=== PATIENT | male | born 1985 | race Hispanic/Latino ===

== ENCOUNTER 2024-06-24 15:24 | Emergency (ER) | payer OTHER, SELFPAY ==
--- NOTE | 2024-06-24 16:41 | RAD REPORT ---
Procedure: Chest Single View HISTORY: Chest pain COMPARISON: none FINDINGS: The lungs appear clear of acute infiltrate. No significant pleural effusion noted. The heart is normal size. IMPRESSION: No acute abnormality is displayed.
[2024-06-24] MEDS ORDERED: ASPIRIN 81 MG CHEWABLE TABLET ONE (17:08)
[2024-06-24 17:29] LABS: Absolute Eosinophils 0.1 K/uL (0-0.5); Absolute Lymphocytes (CBC) 1.7 K/uL (0.7-4.9); Absolute Monocytes 0.5 K/uL (0.1-1.3); Absolute Neutrophil 5.4 K/uL (1.8-8.0); Basophils % 0.5 % (0-1.3); Eosinophils % 1.3 % (0-4.4); Hematocrit 46.4 % (39.6-49.0); Hemoglobin 15.6 g/dL (13.6-17.9); Lymphocytes % 21.6 % (15.3-44.8); MCHC 33.7 g/dL (32.0-36.0); MCV 91.8 fL (80-100); Monocytes % 7.1 % (3.3-12.3); Neutrophils % 69.5 % (41.7-73.7); Platelets 212 thou/uL (152-406); RBC Red Blood Cell Count 5.05 M/uL (4.33-5.43); Red Cell Distribution Width 13.5 % (12.1-15.2)
[2024-06-24 17:32] LABS: D-Dimer 0.367 FEUug/mL (0-0.500); PT Prothrombin Time 12.1 SECONDS (9.4-12.5); Protime INR 1.08
[2024-06-24 17:55] LABS: ALT/SGPT 39 U/L (16-61); AST/SGOT 17 U/L (15-37); Albumin 3.8 g/dL (3.4-5.0); Alkaline Phosphatase 88 U/L (45-117); Anion Gap 7.7 mEq/L (5.0-15.0); BUN Blood Urea Nitrogen 7 mg/dL (7-18); Bicarbonate 29 mEq/L (21-32); Bilirubin Total 0.5 mg/dL (0.2-1.0); Glomerular Filtration Rate 117 ml/min (=/>90); Glucose Level 99 mg/dL (74-106); Magnesium 2.2 mg/dL (1.6-2.4); NT PRO-BNP 37 pg/mL (<125); Potassium 3.7 mEq/L (3.5-5.1); Protein, Total 7.8 g/dL (6.4-8.2); Sodium Level 138 mEq/L (136-145); Troponin High Sensitivity 5.5 pg/mL (<58.9)
[2024-06-24 17:58] LABS: Bilirubin Direct < 0.2 mg/dL (0-0.2); Bilirubin Indirect, Calculated 0.3 mg/dL (0.2-0.8)
--- NOTE | 2024-06-24 20:16 | ER ---
Nurse's Notes [facility] Name: King Jang Age: 39 yrs Sex: Male : 1985 Arrival Date: 06/24/2024 Time: 15:24 Bed 7 Private MD: Diagnosis: Chest pain, unspecified;Elevated blood-pressure reading, without diagnosis of hypertension;Strain of muscle and tendon of front wall of thorax Presentation: 06/24 15:44 Chief complaint: Patient states: "yesterday I picked up this heavy box and right after aa5 I started having pressure to my chest and felt my heart racing". Pt currently c/o chest pressure and feeling "nauseated and dizzy". Coronavirus screen: At this time, the client does not indicate any symptoms associated with coronavirus-19. Ebola Screen: Patient denies travel to an Ebola-affected area in the 21 days before illness onset. Initial Sepsis Screen: Does the patient meet any 2 criteria? No. Patient's initial sepsis screen is negative. Does the patient have a suspected source of infection? No. Patient's initial sepsis screen is negative. Risk Assessment: Do you want to hurt yourself or someone else? Patient reports no desire to harm self or others. Onset of symptoms was June 23, 2024. 15:44 Acuity: LYNSEY 3 aa5 15:44 Method Of Arrival: Ambulatory aa5 Historical: - Allergies: 15:54 No Known Allergies; aa5 - Home Meds: 15:54 None [Active]; aa5 - PMHx: 15:54 seizures as a child; aa5 - PSHx: 15:54 Appendectomy; ear sx; aa5 - Immunization history:: Adult Immunizations unknown. - Infectious Disease History:: Denies. - Social history:: Smoking status: Patient denies any tobacco usage or history of. Screenin:22 [facility] ED Fall Risk Assessment (Adult) History of falling in the last 3 months, jl7 including since admission No falls in past 3 months (0 pts) Confusion or Disorientation No (0 pts) Intoxicated or Sedated No (0 pts) Impaired Gait No (0 pts) Mobility Assist Device Used No (0 pt) Altered Elimination No (0 pt) Score/Fall Risk Level 0 - 2 = Low Risk Oriented to surroundings, Maintained a safe environment. Abuse screen: Denies threats or abuse. Denies injuries from another. Nutritional screening: No deficits noted. Tuberculosis screening: No symptoms or risk factors identified. Assessment: 17:22 General: Appears in no apparent distress. uncomfortable, Behavior is calm, cooperative, jl7 appropriate for age. Pain: Complains of pain in mid-sternal area Pain does not radiate. Quality of pain is described as pressure, Pain began 1 day ago. Is continuous. Neuro: Level of Consciousness is awake, alert, obeys commands, Oriented to person, place, time, situation. Cardiovascular: Patient's skin is warm and dry. Respiratory: Airway is patent Respiratory effort is even, unlabored, Respiratory pattern is regular, symmetrical. Derm: Skin is pink, warm \\T\\ dry. 19:12 Reassessment: Patient appears in no apparent distress at this time. Patient and/or bm8 family updated on plan of care and expected duration. Pain level reassessed. Patient is alert, oriented x 3, equal unlabored respirations, skin warm/dry/pink. denies pain but reports a chest pressure that just there. Patient denies pain at this time. Patient states feeling better. Patient states symptoms have improved. Cardiovascular: Heart tones S1 S2 present Capillary refill < 3 seconds in bilateral fingers Patient's skin is warm and dry. Rhythm is sinus rhythm. Respiratory: Airway is patent Respiratory effort is even, unlabored, Respiratory pattern is regular, symmetrical, Breath sounds are clear bilaterally. 20:34 Reassessment: Patient appears in no apparent distress at this time. No changes from bm8 previously documented assessment. Patient and/or family updated on plan of care and expected duration. Pain level reassessed. Patient is alert, oriented x 3, equal unlabored respirations, skin warm/dry/pink. Patient denies pain at this time. Patient states feeling better. Patient states symptoms have improved. Vital Signs: 15:44 BP 152 / 104; Pulse 100; Resp 19 S; Temp 97.6(TE); Pulse Ox 100% on R/A; aa5 17:22 BP 140 / 90; Pulse 79; Resp 15; Pulse Ox 98% ; jl7 18:07 BP 131 / 90; Pulse 83; Resp 15; Pulse Ox 97% on R/A; ko1 19:12 BP 138 / 80; Pulse 78; Resp 19; Temp 97.6; Pulse Ox 100% ; Pain 0/10; bm8 20:34 BP 128 / 91; Pulse 79; Resp 17; Temp 97.6; Pulse Ox 97% ; Pain 0/10; bm8 19:12 Pain Scale: Adult bm8 20:34 Pain Scale: Adult bm8 [place] Coma Score: 19:12 Eye Response: spontaneous(4). Motor Response: obeys commands(6). Verbal Response: bm8 oriented(5). Total: 15. 20:34 Eye Response: spontaneous(4). Motor Response: obeys commands(6). Verbal Response: bm8 oriented(5). Total: 15. ED Course: 15:26 Patient arrived in ED. ra3 15:26 Marisa Billings PA-C is PHCP. sb4 15:26 King Abbott MD is Attending Physician. sb4 15:44 Arm band placed on. aa5 15:45 Triage completed. aa5 15:53 EKG completed in triage. Results shown to MD. aa5 16:23 XRAY Chest (1 view) In Process Unspecified. EDMS 17:05 Evie Kang, JASMYN is Primary Nurse. ko1 17:21 Initial lab(s) drawn, by me, sent to lab. Inserted saline lock: 20 gauge in right jl7 antecubital area, using aseptic technique. Blood collected. Flushed with 10 mL NS. 17:22 Patient has correct armband on for positive identification. Provided Education on: use jl7 of call casiano. Client placed on continuous cardiac and pulse oximetry monitoring. NIBP monitoring applied. 17:22 Patient maintains SpO2 saturation greater than 95% on room air. jl7 18:07 Door closed. Noise minimized. Lights dimmed. Warm blanket given. Pillow given. ko1 18:07 No provider procedures requiring assistance completed. ko1 19:12 Report received from jasmyn robertson. bm8 20:15 Ole Montejo DO is Referral Physician. sb4 20:34 IV discontinued, intact, bleeding controlled, No redness/swelling at site. Pressure bm8 dressing applied. Administered Medications: 17:09 Drug: Aspirin PO Chewable Tablet 324 mg PO once; 81 mg tablets x 4 Route: PO; ko1 17:39 Follow up: Response: No adverse reaction ko1 Medication: 17:22 VIS not applicable for this client. jl7 Outcome: 20:15 Discharge ordered by . sb4 20:34 Discharged to home ambulatory, bm8 20:34 Condition: stable 20:34 Discharge instructions given to patient, family, Instructed on discharge instructions, follow up and referral plans. no drinking with medication, no driving heavy equipment, medication usage, safety practices, Demonstrated understanding of instructions, follow-up care, medications, Prescriptions given X 2, 20:41 Patient left the ED. bm8 Signatures: Dispatcher [employer] EDAZ Jewell Cox, RN RN aa5 Joaquim Cline RN RN jl7 Evie Kang RN RN ko1 Marisa Billings, PA-C PA-C sb4 Maryjane Monae ra3 Trent Harrison, RN RN bm8 Corrections: (The following items were deleted from the chart) 15:54 15:54 PMHx: None; aa5 aa5
--- NOTE | 2024-06-24 20:17 | EDPHYS ---
Physician Documentation [facility] Name: King Jang Age: 39 yrs Sex: Male : 1985 Arrival Date: 06/24/2024 Time: 15:24 Bed 7 Private MD: ED Physician King Abbott HPI: 06/24 15:48 This 39 yrs old Male presents to ER via Ambulatory with complaints of Chest sb4 Pain. 15:48 Chest discomfort that started yesterday after moving a heavy piece of furniture. States sb4 he has associated dizziness, palpitations, and nausea. Denies any prior episodes of this. Denies any medical history, does not take any daily medications. Does not smoke. Denies any significant family heart disease. Denies any radiation of the symptoms.. Historical: - Allergies: 15:54 No Known Allergies; aa5 - Home Meds: 15:54 None [Active]; aa5 - PMHx: 15:54 seizures as a child; aa5 - PSHx: 15:54 Appendectomy; ear sx; aa5 - Immunization history:: Adult Immunizations unknown. - Infectious Disease History:: Denies. - Social history:: Smoking status: Patient denies any tobacco usage or history of. ROS: 15:49 Constitutional: Negative for fever, chills, and weight loss, sb4 15:49 Cardiovascular: Positive for chest pain, 15:49 All other systems are negative, Exam: 15:50 Head/Face: Normocephalic, atraumatic. Eyes: Extra-ocular motions intact. Periorbital sb4 areas with no swelling, redness, or edema. ENT: Mucous membranes moist. Cardiovascular: Regular rate and rhythm with a normal S1 and S2. Respiratory: No increased work of breathing, no retractions or nasal flaring. Abdomen/GI: Soft, non-tender, no distension. Skin: Warm, dry with normal turgor. Normal color with no rashes, no lesions, and no evidence of cellulitis. 15:50 Constitutional: The patient appears in no acute distress, alert, awake, obese, Vital Signs: 15:44 BP 152 / 104; Pulse 100; Resp 19 S; Temp 97.6(TE); Pulse Ox 100% on R/A; aa5 17:22 BP 140 / 90; Pulse 79; Resp 15; Pulse Ox 98% ; jl7 18:07 BP 131 / 90; Pulse 83; Resp 15; Pulse Ox 97% on R/A; ko1 19:12 BP 138 / 80; Pulse 78; Resp 19; Temp 97.6; Pulse Ox 100% ; Pain 0/10; bm8 20:34 BP 128 / 91; Pulse 79; Resp 17; Temp 97.6; Pulse Ox 97% ; Pain 0/10; bm8 19:12 Pain Scale: Adult bm8 20:34 Pain Scale: Adult bm8 [place] Coma Score: 19:12 Eye Response: spontaneous(4). Motor Response: obeys commands(6). Verbal Response: bm8 oriented(5). Total: 15. 20:34 Eye Response: spontaneous(4). Motor Response: obeys commands(6). Verbal Response: bm8 oriented(5). Total: 15. MDM: 15:42 Medical Screening Exam initiated sb4 19:50 Data reviewed: vital signs, nurses notes, lab test result(s), EKG, radiologic studies, sb4 plain films. Consideration of Admission/Observation Escalation of care including admission/observation considered. Care significantly affected by the following chronic conditions: Obesity. Scoring Tools HEART Score: History: ECG: Age: Risk Factors: 1 or 2 risk factors (1), Troponin: Total Score = 2. Counseling: I had a detailed discussion with the patient and/or guardian regarding the historical points, exam findings, and any diagnostic results supporting the discharge/admit diagnosis, the presence of at least one elevated blood pressure reading (>120/80) during this emergency department visit, lab results, radiology results, the need for outpatient follow up, a lens generator, to return to the emergency department if symptoms worsen or persist or if there are any questions or concerns that arise at home. 06/24 15:48 Order name: Basic Metabolic Panel; Complete Time: 18:00 sb4 06/24 15:48 Order name: CBC with Diff; Complete Time: 17:29 sb4 06/24 15:48 Order name: D-Dimer; Complete Time: 17:32 sb4 06/24 15:48 Order name: LFT's; Complete Time: 18:00 sb4 06/24 15:48 Order name: Magnesium; Complete Time: 18:00 sb4 06/24 15:48 Order name: NT PRO-BNP; Complete Time: 18:00 sb4 06/24 15:48 Order name: PT-INR; Complete Time: 17:32 sb4 06/24 15:48 Order name: Troponin HS; Complete Time: 18:00 sb4 06/24 19:09 Order name: Troponin High Sensitivity; Complete Time: 20:11 sb4 06/24 15:48 Order name: XRAY Chest (1 view); Complete Time: 16:42 sb4 06/24 15:48 Order name: Cardiac monitoring; Complete Time: 16:53 sb4 06/24 15:48 Order name: EKG - Nurse/Tech; Complete Time: 16:53 sb4 06/24 15:48 Order name: IV Saline Lock; Complete Time: 17:21 sb4 06/24 15:48 Order name: Labs collected and sent; Complete Time: 17:21 sb4 06/24 15:48 Order name: O2 Per Protocol; Complete Time: 16:53 sb4 06/24 15:48 Order name: O2 Sat Monitoring; Complete Time: 16:53 sb4 06/24 18:01 Order name: Misc. Order: repeat trop at 1923; Complete Time: 19:52 sb4 EC:38 Rate is 79 beats/min. Rhythm is irregular, Sinus arrythmia. IA interval is normal at sb4 162 msec. QRS interval is normal at 124 msec. QT interval is normal at 362 msec. No Q waves. T waves are Normal. No ST changes noted. Clinical impression: No evidence of ischemia. Interpreted by me. Reviewed by me. Administered Medications: 17:09 Drug: Aspirin PO Chewable Tablet 324 mg PO once; 81 mg tablets x 4 Route: PO; ko1 17:39 Follow up: Response: No adverse reaction ko1 Disposition Summary: 06/24/24 20:15 Discharge Ordered Notes: Location: Home sb4 Problem: new sb4 Symptoms: have improved sb4 Condition: Stable sb4 Diagnosis - Chest pain, unspecified sb4 - Elevated blood-pressure reading, without diagnosis of hypertension sb4 - Strain of muscle and tendon of front wall of thorax sb4 Followup: sb4 - With: Ole Montejo, DO - When: 1 week - Reason: Recheck today's complaints, Continuance of care, Re-evaluation by your physician Discharge Instructions: - Discharge Summary Sheet sb4 - Chest Wall Pain, [id number] sb4 - Nonspecific Chest Pain, Adult, [id number] sb4 - How to Take Your Blood Pressure sb4 Forms: - Patient Portal Instructions sb4 - Leadership Thank You Letter sb4 Prescriptions: - ketorolac 10 mg Oral tablet - take 1 tablet ORAL route every 4 to 6 hours for 3 days as needed for pain; do sb4 not exceed 4 doses per 24 hrs; 12 tablet; Refills: 0, Product Selection Permitted - Prednisone 20 mg Oral Tablet - take 1 tablet ORAL route once daily for 5 days; 5 tablet; Refills: 0, Product sb4 Selection Permitted Signatures: Dispatcher [employer] EDJewell Zavala, RN RN aa5 Evie Kang, RN RN ko1 Marisa Billings PA-C PA-C sb4 Corrections: (The following items were deleted from the chart) 15:49 15:49 BASIC METABOLIC PANEL+C.LAB.BRZ ordered. EDMS EDMS 15:49 15:49 CBC+H.LAB.BRZ ordered. EDMS EDMS 15:49 15:49 D-DIMER+COAG.LAB.BRZ ordered. EDMS EDMS 15:49 15:49 HEPATIC FUNCTION+C.LAB.BRZ ordered. EDMS EDMS 15:49 15:49 MAGNESIUM+C.LAB.BRZ ordered. EDMS EDMS 15:49 15:49 PROBNP+C.LAB.BRZ ordered. EDMS EDMS 15:49 15:49 PROTIME (+INR)+COAG.LAB.BRZ ordered. EDMS EDMS 15:49 15:49 Troponin High Sensitivity+C.LAB.BRZ ordered. EDMS EDMS 15:49 15:49 Chest Single View+RAD.RAD.BRZ ordered. EDMS EDMS 15:54 15:54 PMHx: None; aa5 aa5 19:10 19:10 Troponin High Sensitivity+C.LAB.BRZ ordered. EDMS EDMS
[2024-06-24 22:38] VITALS: TEMP 97.6
[2024-06-24 22:47] VITALS: BP 128/91; O2SAT 97
--- NOTE | 2024-06-25 12:19 | EKG ---
Test Date: 2024-06-24 Test Time: 15:52:30 [employer] Line Trimmer: EDIE MEASUREMENT RESULTS: Intervals: Rate: 79 VT: 162 QRSD: 124 QT: 362 QTc: 415 [place]: P: 54 VT: 162 QRS: -4 T: 26 INTERPRETIVE STATEMENTS: Sinus rhythm with marked sinus arrhythmia Otherwise normal ECG No previous ECG available for comparison Electronically Signed On 06-25-24 12:16:43 SOLUTION STRATEGIST by Charles Mcgowan
== END 2024-06-24 20:41 | disposition home or self-care (01) ==
LOC: ER 15:24
DX: S29.011A Strain of muscle and tendon of front wall of thorax, initial encounter (principal); R03.0 Elevated blood-pressure reading, without diagnosis of hypertension
CPT/HCPCS: 36415; 71045; 80048; 80076; 83735; 83880; 84484; 85025; 85379; 85610; 93005; 99284